=== PATIENT | female | born 1965 | race Asian ===

== ENCOUNTER 2019-11-06 00:51 | Emergency (ER) | payer OTHER ==
[~2019-11-06] VITALS: Ht 162.6 cm; Wt 65.8 kg
--- NOTE | 2019-11-06 01:00 | NUR ---
CALLED FOR TRIAGE. NO ANSWER
--- NOTE | 2019-11-06 01:22 | NUR ---
BIBS FOR C/O FOREHEAD LACERATION AND NECK PAIN S/P FALL. -KO TO ER BED 1 AWAITING MD BARRERA
[2019-11-06] MEDS ORDERED: LIDOCAINE 0.5% HCL 50 ML VIAL ONE (01:31)
--- NOTE | 2019-11-06 01:35 | NUR ---
AT BED SIDE FOR LAC CARE
--- NOTE | 2019-11-06 01:51 | NUR ---
PT TAKEN TO CT
--- NOTE | 2019-11-06 01:55 | NUR ---
PT BAKC FROM CT
[2019-11-06 02:33] VITALS: BP 145/81
--- NOTE | 2019-11-06 02:33 | NUR ---
Patient discharged to home in stable condition. Written and verbal after care instructions given. Patient verbalizes understanding of instruction.
== END 2019-11-06 02:34 | disposition home or self-care (01) ==
LOC: ER 00:51
DX: S01.81XA Laceration without foreign body of other part of head, initial encounter (principal); I10 Essential (primary) hypertension; Z90.79 Acquired absence of other genital organ(s); W18.39XA Other fall on same level, initial encounter; Y93.89 Activity, other specified; Y92.89 Other specified places as the place of occurrence of the external cause; Y99.8 Other external cause status
CPT/HCPCS: 12011; 70450; 99284; A6403; J3490

== ENCOUNTER 2019-11-13 15:36 | Emergency (ER) | payer OTHER ==
[~2019-11-13] VITALS: Ht 162.6 cm; Wt 65.8 kg
[2019-11-13 16:20] VITALS: BP 127/77
[2019-11-13] MEDS ORDERED: BACITRACIN ZINC OINT PACKET 1 EA PACKET TP ONE (16:30)
== END 2019-11-13 16:53 | disposition home or self-care (01) ==
LOC: ER 15:37
DX: S01.81XD Laceration without foreign body of other part of head, subsequent encounter (principal); I10 Essential (primary) hypertension; Z90.79 Acquired absence of other genital organ(s); W01.0XXD Fall on same level from slipping, tripping and stumbling without subsequent striking against object, subsequent encounter